=== PATIENT | female | born 1945 | race Caucasian/White ===

== ENCOUNTER 2016-06-30 08:42 | Day surgery (SDC) | payer BC ==
--- NOTE | 2016-06-24 03:39 | HP ---
PREOPERATIVE HISTORY AND PHYSICAL: DATE OF ADMISSION: 06/30/16 [facility] DATE OF OFFICE VISIT: 06/20/16 ATTENDING SURGEON: Dr. Ladarius Salinas. (DICTATED BY TAMRA COON) PROCEDURE: Right knee arthroscopy, partial meniscectomy. CHIEF COMPLAINT: Right knee pain. HISTORY OF PRESENT ILLNESS: Colette is a 71-year-old female who presented to the clinic for followup of right knee pain due to medial and lateral meniscus injuries. She received an injection at the last visit, which she states wore off 3 months ago. She continues to have an intermittent, sharp, shooting, 8/10 , constant aching pain in her knee with her movements and a constant ache. The pains were made worse with stairs and sitting for a long time. She reports intermittent catching and giving out of her knee. She denies locking. She reports intermittent clicking. She denies numbness and tingling. She has failed conservative measures and has therefore agreed to undergo a right knee arthroscopic partial meniscectomy with Dr. Salinas. PAST MEDICAL HISTORY: 1. Positive for depression. 2. ADD. 3. Seasonal allergies. PAST SURGICAL HISTORY: Cataract surgery, left knee arthroscopy, partial meniscectomy, and caruncles of the urethra. MEDICATIONS: 1. Methylphenidate HCl 10 mg 1/2 to 1 by mouth once daily as needed. 2. Venlafaxine HCl ER 37.5 mg take 2 capsules by mouth every morning and 2 capsules every night at bedtime. 3. Estrace 0.1 mg/g insert 0.5 g vaginally at bedtime once every 1 to 2 weeks. 4. Zyrtec 10 mg by mouth once daily. 5. Nasonex 50 mcg per ACT, 2 sprays each nostril. 6. Multivitamin 1 by mouth once daily. 7. [place]-3 fish oil 1000 mcg 1 by mouth daily. 8. Calcium 500 mg 1 by mouth a day. ALLERGIES: CODEINE. FAMILY HISTORY: Father positive for diabetes type 1 and family history of hypertension. SOCIAL HISTORY: She lives with her . She works as a therapist. She denies tobacco use. She reports occasional alcohol use. She is right hand dominant. REVIEW OF SYSTEMS: A 14-point review of systems was reviewed with the patient and positive for the current complaint of right knee pain; otherwise, negative. She denies fever, chills, chest pain, shortness of breath, history of DVT or PE, complications with prior anesthesia, or history of bleeding disorder. PHYSICAL EXAMINATION GENERAL: Well-developed, well-nourished 71-year-old female, in no acute distress. Alert and oriented x3. Appropriate mood and affect. VITALS: Height 64.9, weight 165, pulse 83, blood pressure 131/76, respiratory rate 15, BMI 27.5. HEENT: Normocephalic, atraumatic. PERRLA. Throat clear. NECK: Supple. PULMONARY: Lungs are clear to auscultation bilaterally. No wheezing, rhonchi, or rales. CARDIO: Regular rate and rhythm. S1, S2. No murmurs, gallops, or rubs. No edema. ABDOMEN: Positive bowel sounds. Soft, nontender. MUSCULOSKELETAL: Right lower extremity, skin is intact. No warmth or erythema or ecchymosis. Mild effusion. Tenderness to palpation of the medial and lateral joint line. Range of motion from 0 to 120. Stable with varus and valgus stress. Stable Jake. Negative posterior drawer. Calves soft, nontender. Positive Kym. +2 dorsalis pedis pulse. Sensation intact to light touch distally. Left lower extremity, skin is intact. Nontender to palpation, and full range of motion. Stable ligaments. +2 dorsalis pedis pulse. Sensation intact to light touch distally. NEURO: Alert and oriented x3. Cranial nerves grossly intact. Sensation is intact to light touch. DIAGNOSTIC STUDIES/LAB DATA: MRI of the right knee revealed degenerative medial meniscus tear and lateral meniscus tear. IMPRESSION: Right knee medial and lateral meniscus tear. PLAN: The patient is scheduled to undergo a right knee arthroscopic partial meniscectomy with Dr. Salinas. She will return to the office 10 to 14 days postop for followup and suture removal. Percocet will be used for postoperative pain management. TAMRA COON [id number]/[facility] #: [id number] MTDAndrea
[~2016-06-30 08:42] MED LIST: Buffered Lidocaine 1% SYR 3ML* 3 ML/SYR SYRINGE INTRADERM ONE; Sodium Citrate/Citric Acid* 15 ML UDC PO ONE
[2016-06-30] MEDS ORDERED: ceFAZolin 2 GM PREMIX(*) 2 GM/50 ML BAG IVPB ONE (08:52)
[2016-06-30] MEDS ORDERED: Sodium Citrate/Citric Acid* 15 ML UDC ONE (08:52)
[2016-06-30] MEDS ORDERED: Bupivacaine 0.25% SDV* 30 ML ONE (09:53)
[2016-06-30] MEDS ORDERED: Bupivacaine 0.25% EPI 200,000* 30 ML SDV ONE (09:53)
[2016-06-30] MEDS ORDERED: Chloroprocaine 2%* 20 ML VIAL ONE (10:17)
[2016-06-30] MEDS ORDERED: Midazolam* 1 MG/ML 2 ML VIAL (2 MG) ONE ×2 (10:23→10:40)
[2016-06-30] MEDS ORDERED: methylPREDNISolone ACETATE 80* 80 MG/ML 1 ML VIAL ONE (11:16)
[2016-06-30 12:35] VITALS: BP 139/63
--- NOTE | 2016-07-14 03:46 | OP ---
OPERATIVE REPORT: DATE OF OPERATION: 06/30/16 - PRIT[facility] DATE OF : 43 SURGEON: Ladarius Salinas MD [employer]: [employer] ANESTHESIOLOGIST: Gonzalez Manuel DO ANESTHESIA: Spinal. PRE-OP DIAGNOSIS: Right knee meniscus tear and mild arthritis. POST-OP DIAGNOSIS: Right knee meniscus tear and mild arthritis. OPERATIVE PROCEDURE: Right knee arthroscopy with partial medial and lateral meniscectomy, chondroplasty, and plica excision. COMPLICATIONS: None. ESTIMATED BLOOD LOSS: Minimal. TOURNIQUET TIME: Zero minutes. INDICATIONS: Colette Keith is a 71-year-old female, who has had medial and lateral meniscal tears that she had tried to treat conservatively. She has had injections as well as therapy. She continues to have symptoms with catching and locking and has elected to proceed with right knee arthroscopic partial meniscectomy. Risks and benefits of surgery were discussed at length and include, but are not limited to bleeding; infection; damage to nerves, vessels, and surrounding structures; wound nonhealing; persistent pain; need for further surgery; risk of anesthesia; scarring; stiffness; risk of DVT; and incomplete relief of symptoms. She has elected to proceed. DESCRIPTION OF PROCEDURE: The patient was greeted in the preoperative area by the attending surgeon. The correct extremity was marked and consent was confirmed. The patient was then brought back to the operating suite, where she underwent spinal anesthesia and was positioned comfortably on the bed. An unsterile tourniquet was placed high on the proximal thigh at the lateral post was positioned. After miniature surgical pause, the knee was intraarticularly injected with with 0.25% Marcaine with epi after which the right leg was prepped and draped in usual sterile fashion beginning with chlorhexidine, soap scrub, and alcohol wipe and a final prep with ChloraPrep. After appropriate surgical pause indicating site, side, procedure, and administration of antibiotics; the lateral portal was made. Using a 11 blade, the scope was introduced into the joints. The suprapatellar pouch was examined. There were grade 0 to 1 changes with no large instable flat and patellofemoral joints. The medial and lateral gutters were examined. The trochlea was examined and had mild changes in the medial femoral condyle, had mild grade 1 to 2 changes with some unstable fraying. The scope was brought into the notch and the ACL and PCL were intact, but had degenerative changes. The scope was positioned in the medial compartment and there was an unstable tear that was subluxing at the posterior medial meniscus. A small chondroplasty of the medial femoral condyle was done and then a partial meniscectomy with binders, jojo, and electrocautery devices were then used. After the meniscectomy was done, the knee was placed in extension and the removal of the medial plica was then done and as it was abrading against the medial femoral condyle. Hemostasis was obtained using electrocautery device. Attention was directed to the lateral compartment. There was unstable fraying of the meniscus that was apparent. This was debrided back using the jojo as well as the binders. Once both meniscectomies, chondroplasty, and the plica excision were complete; all loose debris and fluid were removed from the knee. The ports were closed with 3-0 nylon. The knee was intraarticularly injected with 80 mg of Depo-Medrol and 0.25% Marcaine plain. Sterile dressings were applied as well as Cryo/Cuff. She was awoken up from anesthesia and transferred to the PACU in stable condition. POSTOPERATIVE PLAN: She will be weightbearing as tolerated using crutches or a walker. She will be allowed to work on range of motion. She will be discharged on pain medications. I will see the patient back in 10 to 14 days. CC: FILIPPO* [id number]/[facility] #: [id number] NKECHI
== END 2016-06-30 12:39 | disposition home or self-care (01) ==
LOC: OREAST 08:42
PROVIDERS: ATTEND Orthopaedic Surgery
DX: M23.203 Derangement of unspecified medial meniscus due to old tear or injury, right knee (principal); M23.200 Derangement of unspecified lateral meniscus due to old tear or injury, right knee; M17.11 Unilateral primary osteoarthritis, right knee; F32.9 Major depressive disorder, single episode, unspecified; F98.8 Other specified behavioral and emotional disorders with onset usually occurring in childhood and adolescence; J30.1 Allergic rhinitis due to pollen
CPT/HCPCS: A9270-GY; J0690; J1040; J2250; J2400

== ENCOUNTER 2018-09-09 19:31 | Emergency (ER) | payer MEDICARE, BC ==
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
[2018-09-09] MEDS ORDERED: Ibuprofen TAB* 400 MG PO ONE (19:48)
[2018-09-09] MEDS ORDERED: Acetaminophen TAB* 325 MG PO ONE (19:48)
[2018-09-09 20:11] LABS: ABS Eosinophils 0.1 10^3/ul (0-0.6); ABS Lymphocytes 1.2 10^3/ul (1.0-4.8); ABS Monocytes 0.5 10^3/ul (0-0.8); ABS Neutrophils 4.6 10^3/ul (1.5-7.7); Eosinophil % 2.1 %; Hematocrit 39 % (35-47); Hemoglobin 13.5 g/dL (12.0-16.0); Lymphocyte % 18.6 %; Mean Corpuscular HGB Conc 34 g/dL (31-36); Mean Corpuscular Hemoglobin 33 pg (27-31); Mean Corpuscular Volume 95 fL (80-97); Mean Platelet Volume 8.3 fL (7.4-10.4); Nucleated Red Blood Cells % 0.1; Platelet Count 173 10^3/uL (150-450); Red Blood Count 4.14 10^6 /uL (3.70-4.87); Red Cell Distribution Width 14 % (10-15); White Blood Count 6.5 10^3/uL (3.5-10.8)
[2018-09-09 20:27] LABS: Albumin/Globulin Ratio 1.4 (1-3); BUN/Creatinine Ratio 24.7 (8-20); Calcium 9.6 mg/dL (8.6-10.3); EGFR African American 79.1 (>60); EGFR Non-African American 65.4 (>60); Globulin 2.8 g/dL (2-4); Potassium 4.6 mmol/L (3.5-5.0); Total Bilirubin 0.4 mg/dL (0.2-1.0); Total Protein 6.8 g/dL (6.4-8.9)
[2018-09-09 23:09] VITALS: BP 138/68
== END 2018-09-09 23:08 | disposition home or self-care (01) ==
LOC: ED 19:31
DX: S00.31XA Abrasion of nose, initial encounter (principal); M54.2 Cervicalgia; R07.89 Other chest pain; W10.9XXA Fall (on) (from) unspecified stairs and steps, initial encounter; Y92.9 Unspecified place or not applicable; I47.1 Supraventricular tachycardia; M19.90 Unspecified osteoarthritis, unspecified site; Z09 Encounter for follow-up examination after completed treatment for conditions other than malignant neoplasm; Z88.5 Allergy status to narcotic agent; Z87.891 Personal history of nicotine dependence; M50.30 Other cervical disc degeneration, unspecified cervical region
CPT/HCPCS: 36415; 70450; 70486; 71250; 72125; 80053; 82550; 83605; 85025; 93005; 99284; A9270-GY